=== PATIENT | female | born 1950 | race Caucasian/White ===

== ENCOUNTER 2021-06-21 13:33 | Emergency (ER) | payer MEDICARE ==
[2021-06-21 13:50] VITALS: O2SAT 100
--- NOTE | 2021-06-21 14:02 | ERPHSYRPT ---
- History of Present Illness Time Seen by Provider: 06/21/21 13:50 Source: patient Exam Limitations: no limitations Patient Subjective Stated Complaint: Weakness Triage Nursing Assessment: Patient ambulated back to ED and transferred self to bed. Patient A+O X 3. Patient's skin pink, warm and dry. Patient complains of weakness for a long time. Patient states she has anxiety and it has been bad the past several months. Her has been put in a care home recently. Physician History: This is a 71 y/o cachectic white female pt of dr. escobedo who presents with multiple complaints including weakness, instability, weight loss and anxiety. she denies cp, denies sob, denies abd pain. she denies n/v/d. she is focused on needing calories. Timing/Duration: week(s) Severity: mild Associated Symptoms: weakness, No nausea, No vomiting, No abdominal pain, No shortness of breath, No chest pain Allergies/Adverse Reactions: latex Allergy (Severe, Verified 06/21/21 13:42) Rash Penicillins Allergy (Intermediate, Verified 06/21/21 13:42) wool Allergy (Intermediate, Verified 06/21/21 13:42) Rash Home Medications: Aspirin 81 mg PO DAILY 05/10/14 [History] Hx Tetanus, Diphtheria Vaccination/Date Given: Yes Hx Influenza Vaccination/Date Given: No Hx Pneumococcal Vaccination/Date Given: No Immunizations Up to Date: Yes Travel Risk - International Travel Have you traveled outside of the country in past 3 weeks: No - Coronavirus Screening Are you exhibiting any of the following symptoms?: No Close contact with a COVID-19 positive Pt in past 14-21 Days: No - Vaccine Status Have you recieved a Covid-19 vaccination: Yes 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 - Vaccination Dates Date of 2cond Vaccination (if applicable): na Dates if Unknown: na - Review of Systems Constitutional: Weakness Eyes: No Symptoms Ears, Nose, & Throat: No Symptoms Respiratory: No Symptoms Cardiac: No Symptoms Abdominal/Gastrointestinal: No Symptoms Genitourinary Symptoms: No Symptoms Musculoskeletal: No Symptoms Skin: No Symptoms Neurological: No Symptoms Psychological: Anxiety Endocrine: No Symptoms Hematologic/Lymphatic: No Symptoms Immunological/Allergic: No Symptoms All Other Systems: Reviewed and Negative - Past Medical History Pertinent Past Medical History: Yes Neurological History: Other ENT History: Cataracts Cardiac History: High Cholesterol, Hypertension Respiratory History: No Pertinent History Endocrine Medical History: No Pertinent History Musculoskeletal History: Fibromyalgia GI Medical History: No Pertinent History History: No Pertinent History Psycho-Social History: Anxiety, Depression Female Reproductive Disorders: No Pertinent History Other Medical History: parkinsons disease - Past Surgical History Past Surgical History: Yes Neuro Surgical History: No Pertinent History Cardiac: No Pertinent History Respiratory: No Pertinent History Gastrointestinal: No Pertinent History Genitourinary: No Pertinent History Musculoskeletal: No Pertinent History Female Surgical History: No Pertinent History - Social History Smoking Status: Never smoker Exposure to second hand smoke: No Drug Use: none Patient Lives Alone: Yes - Nursing Vital Signs Nursing Vital Signs: Initial Vital Signs Temperature 98.6 F 06/21/21 13:42 Pulse Rate 94 H 06/21/21 13:42 Respiratory Rate 18 06/21/21 13:42 Blood Pressure 177/95 06/21/21 13:42 O2 Sat by Pulse Oximetry 100 06/21/21 13:42 Pain Scale Pain Intensity 0 - Physical Exam General Appearance: no apparent distress, alert, anxiety, cachetic Eye Exam: PERRL/EOMI, eyes nml inspection Ears, Nose, Throat Exam: normal ENT inspection, moist mucous membranes Neck Exam: normal inspection, non-tender, supple, full range of motion Respiratory Exam: normal breath sounds, lungs clear, airway intact, No chest tenderness, No respiratory distress Cardiovascular Exam: regular rate/rhythm, normal heart sounds, normal peripheral pulses Gastrointestinal/Abdomen Exam: soft, normal bowel sounds, No tenderness Pelvic Exam: not done Rectal Exam: not done Back Exam: normal inspection, normal range of motion, No CVA tenderness, No vertebral tenderness Extremity Exam: normal inspection Neurologic Exam: alert, oriented x 3, cooperative, 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 no change from ekg 05/10/14) Ordered Tests: Active Orders 24 hr Category Date Time Status EKG-ER Only STAT Care 06/21/21 14:03 Active IV Insertion STAT Care 06/21/21 14:03 Active CBC W DIFF Stat Lab 06/21/21 14:25 Completed CMP Stat Lab 06/21/21 14:25 Completed Lactic Acid Stat Lab 06/21/21 14:26 Completed TROPONIN Q3H Lab 06/21/21 14:15 Ordered TROPONIN Q3H Lab 06/21/21 17:15 Ordered TROPONIN Q3H Lab 06/21/21 20:15 Ordered TROPONIN Q3H Lab 06/21/21 23:15 Ordered TROPONIN Q3H Lab 06/22/21 02:15 Ordered UA W/RFX CULTURE Stat Lab 06/21/21 Ordered UA W/RFX CULTURE Stat Lab 06/21/21 14:29 Results Medication Summary Discontinued Medications Generic Name Dose Route Start Last Admin Trade Name Antonioq PRN Reason Stop Dose Admin Sodium Chloride 1,000 mls @ 999 mls/hr 06/21/21 14:03 06/21/21 15:46 Sodium Chloride 0.9% 1000 Ml IV 06/21/21 15:03 Infused .Q1H1M STA Infusion Sodium Chloride Confirm 06/21/21 14:36 Sodium Chloride 0.9% 1000 Ml Administered 06/21/21 14:37 Dose 1,000 mls @ ud .ROUTE .STK-MED ONE Lab/Rad Data: Laboratory Result Diagrams 06/21/21 14:25 06/21/21 14:25 Laboratory Results 06/21/21 06/21/21 06/21/21 Range/Units 14:29 14:26 14:25 WBC (4.0-10.5) K/mm3 RBC (4.1-5.4) M/mm3 Hgb (12.0-16.0) gm/dl Hct (35-47) % MCV (78-100) fl MCH (26-32) pg MCHC (32-36) g/dl RDW (11.5-14.0) % Plt Count (150-450) K/mm3 MPV (7.5-11.0) fl Gran % (36.0-66.0) % Eos # (Auto) (0-0.5) Absolute Lymphs (auto) (1.0-4.6) Absolute Monos (auto) (0.0-1.3) Lymphocytes % (24.0-44.0) % Monocytes % (0.0-12.0) % Eosinophils % (0.00-5.0) % Basophils % (0.0-0.4) % Absolute Granulocytes (1.4-6.9) Basophils # (0-0.4) Sodium 135 L (137-145) mmol/L Potassium 3.9 (3.5-5.1) mmol/L Chloride 104 (98-107) mmol/L Carbon Dioxide 20 L (22-30) mmol/L Anion Gap 14.4 (5-15) MEQ/L BUN 15 (7-17) mg/dL Creatinine 0.52 (0.52-1.04) mg/dL Estimated GFR > 60.0 ML/MIN Glucose 90 (74-106) mg/dL Lactic Acid 0.6 (0.4-2.0) Calcium 9.6 (8.4-10.2) mg/dL Total Bilirubin 0.40 (0.2-1.3) mg/dL AST 39 H (14-36) U/L ALT 17 (0-35) U/L Alkaline Phosphatase 48 (38-126) U/L Serum Total Protein 7.6 (6.3-8.2) g/dL Albumin 4.4 (3.5-5.0) g/dL Urinalys Dipstick Clnc Pending Urine Color YELLOW (YELLOW) Urine Appearance CLEAR (CLEAR) Urine pH 6.5 (5-6) Ur Specific [place] 1.020 (1.005-1.025) POC Urine Protein Conf NEGATIVE (Negative) Urine Ketones NEGATIVE (NEGATIVE) Urine Nitrite NEGATIVE (NEGATIVE) Urine Bilirubin NEGATIVE (NEGATIVE) Urine Urobilinogen 0.2 (0-1) mg/dL Urine Leukocytes NEGATIVE (NEGATIVE) Urine WBC (Auto) NONE (0-5) /HPF Urine RBC (Auto) NONE (0-2) /HPF U Epithel Cells (Auto) NONE (FEW) /HPF Urine Bacteria (Auto) NONE (NEGATIVE) /HPF Urine RBC NEGATIVE (0-5) Ezio/ul Urine Mucus (Auto) SLIGHT (NEGATIVE) /HPF Ur Culture Indicated? NO Urine Glucose NEGATIVE (NEGATIVE) mg/dL 06/21/21 Range/Units 14:25 WBC 5.0 (4.0-10.5) K/mm3 RBC 3.65 L (4.1-5.4) M/mm3 Hgb 10.8 L (12.0-16.0) gm/dl Hct 32.6 L (35-47) % MCV 89.3 (78-100) fl MCH 29.6 (26-32) pg MCHC 33.1 (32-36) g/dl RDW 13.2 (11.5-14.0) % Plt Count 232 (150-450) K/mm3 MPV 10.1 (7.5-11.0) fl Gran % 61.9 (36.0-66.0) % Eos # (Auto) 0.15 (0-0.5) Absolute Lymphs (auto) 1.27 (1.0-4.6) Absolute Monos (auto) 0.47 (0.0-1.3) Lymphocytes % 25.2 (24.0-44.0) % Monocytes % 9.3 (0.0-12.0) % Eosinophils % 3.0 (0.00-5.0) % Basophils % 0.6 (0.0-0.4) % Absolute Granulocytes 3.12 (1.4-6.9) Basophils # 0.03 (0-0.4) Sodium (137-145) mmol/L Potassium (3.5-5.1) mmol/L Chloride (98-107) mmol/L Carbon Dioxide (22-30) mmol/L Anion Gap (5-15) MEQ/L BUN (7-17) mg/dL Creatinine (0.52-1.04) mg/dL Estimated GFR ML/MIN Glucose (74-106) mg/dL Lactic Acid (0.4-2.0) Calcium (8.4-10.2) mg/dL Total Bilirubin (0.2-1.3) mg/dL AST (14-36) U/L ALT (0-35) U/L Alkaline Phosphatase (38-126) U/L Serum Total Protein (6.3-8.2) g/dL Albumin (3.5-5.0) g/dL Urinalys Dipstick Clnc Urine Color (YELLOW) Urine Appearance (CLEAR) Urine pH (5-6) Ur Specific [place] (1.005-1.025) POC Urine Protein Conf (Negative) Urine Ketones (NEGATIVE) Urine Nitrite (NEGATIVE) Urine Bilirubin (NEGATIVE) Urine Urobilinogen (0-1) mg/dL Urine Leukocytes (NEGATIVE) Urine WBC (Auto) (0-5) /HPF Urine RBC (Auto) (0-2) /HPF U Epithel Cells (Auto) (FEW) /HPF Urine Bacteria (Auto) (NEGATIVE) /HPF Urine RBC (0-5) Ezio/ul Urine Mucus (Auto) (NEGATIVE) /HPF Ur Culture Indicated? Urine Glucose (NEGATIVE) mg/dL - Progress Progress: unchanged Counseled pt/family regarding: lab results, diagnosis, need for follow-up - Departure Departure Disposition: Home Clinical Impression: Weakness, Weight loss, Anxiety about health Condition: Stable Critical Care Time: No Referrals: KIKE ESCOBEDO, [Primary Care Provider] - Follow up/PCP as directed Additional Instructions: Take all your medications as prescribed. follow up with your primary doctor for further evaluation and treatment
[2021-06-21] MEDS ORDERED: Sodium Chloride 0.9% 1000 ML 1,000 ML IV STA (14:03)
[2021-06-21] MEDS ORDERED: Sodium Chloride 0.9% 1000 ML 1,000 ML ONE (14:36)
[2021-06-21 14:39] LABS: Absolute Neutrophil Ct (ANC) 3.12 (1.4-6.9); Basophil (Absolute #) 0.03 (0-0.4); Eosinophil (Absolute #) 0.15 (0-0.5); Hematocrit 32.6 % (35-47); Hemoglobin 10.8 gm/dl (12.0-16.0); Lymphocyte (Absolute #) 1.27 (1.0-4.6); Lymphocytes % 25.2 % (24.0-44.0); Mean Cell Volume 89.3 fl (78-100); Mean Corpuscular Hemoglobin 29.6 pg (26-32); Mean Corpuscular Hgb Concent. 33.1 g/dl (32-36); Mean Platelet Volume 10.1 fl (7.5-11.0); Monocyte (Absolute #) 0.47 (0.0-1.3); Monocytes % 9.3 % (0.0-12.0); Neutrophil % 61.9 % (36.0-66.0); Platelet Count 232 K/mm3 (150-450); Red Blood Count 3.65 M/mm3 (4.1-5.4); Red Cell Distribution Width 13.2 % (11.5-14.0)
[2021-06-21 15:18] LABS: ALBUMIN 4.4 g/dL (3.5-5.0); ALKALINE PHOSPHATASE 48 U/L (38-126); ANION GAP 14.4 MEQ/L (5-15); BLOOD UREA NITROGEN 15 mg/dL (7-17); CHLORIDE 104 mmol/L (98-107); Calcium 9.6 mg/dL (8.4-10.2); Carbon Dioxide 20 mmol/L (22-30); Creatinine 1 0.52 mg/dL (0.52-1.04); EST GLOMERULAR FILTRATION RATE > 60.0 ML/MIN; Glucose 90 mg/dL (74-106); Potassium 3.9 mmol/L (3.5-5.1); SGOT/AST 39 U/L (14-36); SGPT/ALT 17 U/L (0-35); SODIUM 135 mmol/L (137-145); Total Protein 7.6 g/dL (6.3-8.2)
[2021-06-21 16:00] LABS: Mucus SLIGHT /HPF (NEGATIVE)
[2021-06-21 16:01] LABS: Appearance CLEAR (CLEAR); Glucose NEGATIVE (NEGATIVE)
[2021-06-21 16:02] LABS: Bilirubin NEGATIVE (NEGATIVE); Ketones NEGATIVE (NEGATIVE); Nitrite NEGATIVE (NEGATIVE); Ph 6.5 (5-6); Protein,Urine Dip NEGATIVE (Negative); RBC NEGATIVE Ery/ul (0-5); Urine Cultured Indicated? NO; Urobilinogen 0.2 mg/dL (0-1)
[2021-06-21 16:09] VITALS: BP 147/68; PULSE 83
[2021-06-21 16:10] LABS: Dipstick done @ ? MAIN LAB
== END 2021-06-21 16:30 | disposition home or self-care (01) ==
LOC: ED 13:33
DX: R53.1 Weakness (principal); R63.4 Abnormal weight loss; F41.9 Anxiety disorder, unspecified; E78.5 Hyperlipidemia, unspecified; I10 Essential (primary) hypertension
CPT/HCPCS: 36000; 36415; 80053; 81015; 83605; 85025; 93005; 96360; 96374; 99284

== ENCOUNTER 2021-09-05 13:25 | Observation (INO) | payer MEDICARE ==
[2021-09-05] MEDS: Sodium Chloride 0.9% 1000 ML 1,000 ML IV SCH ×2 (14:49→22:23)
[2021-09-05 14:50] LABS: INFLUENZA A NEGATIVE (NEGATIVE); INFLUENZA B NEGATIVE (NEGATIVE); RESPIRATORY SYNCTIAL VIRUS NEGATIVE (Negative); SARS-CoV-2 Xpert Express NEGATIVE (NEGATIVE)
[2021-09-05] MEDS: Ativan 0.5 MG PO PRN (18:02)
[2021-09-05] MEDS ORDERED: TYLENOL 325 MG PO PRN (18:04)
[2021-09-05] MEDS: TYLENOL EXTRA STRENGTH 500 MG PO PRN (18:24)
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
[2021-09-05] MEDS: Restoril 15 MG PO SCH ×2 (21:22→21:27)
[2021-09-05] MEDS: Neurontin PO SCH (21:22)
[2021-09-05] MEDS: Robaxin PO SCH (21:22)
[2021-09-06] MEDS: TYLENOL EXTRA STRENGTH 500 MG PO PRN ×3 (03:55→22:07)
[2021-09-06] MEDS: Ativan 0.5 MG PO PRN ×3 (03:55→16:41)
[2021-09-06 05:38] LABS: Absolute Neutrophil Ct (ANC) 1.62 x10^3/uL (1.4-6.9); Basophil (Absolute #) 0.06 x10^3/uL (0-0.4); Eosinophil (Absolute #) 0.17 x10^3/uL (0-0.5); Hemoglobin 10.3 g/dL (12.0-16.0); Lymphocyte (Absolute #) 1.21 x10^3/uL (1.0-4.6); Lymphocytes % 35.5 % (24.0-44.0); Mean Cell Volume 89.9 fL (78-100); Mean Corpuscular Hemoglobin 28.9 pg (26-32); Mean Corpuscular Hgb Concent. 32.2 g/dL (32-36); Mean Platelet Volume 10.9 fL (7.5-11.0); Monocyte (Absolute #) 0.35 x10^3/uL (0.0-1.3); Monocytes % 10.3 % (0.0-12.0); Neutrophil % 47.4 % (36.0-66.0); Platelet Count 227 x10^3/uL (150-450); Red Blood Count 3.56 x10^6/uL (4.1-5.4); Red Cell Distribution Width 12.3 % (11.5-14.0); White Blood Count 3.4 x10^3/uL (4.0-10.5)
[2021-09-06 06:08] LABS: ALBUMIN 3.8 g/dL (3.5-5.0); ALKALINE PHOSPHATASE 45 U/L (38-126); ANION GAP 10.9 MEQ/L (5-15); BLOOD UREA NITROGEN 12 mg/dL (7-17); CHLORIDE 106 mmol/L (98-107); Calcium 9.1 mg/dL (8.4-10.2); Carbon Dioxide 27 mmol/L (22-30); EST GLOMERULAR FILTRATION RATE > 60.0 ML/MIN; Glucose 97 mg/dL (74-106); Potassium 3.5 mmol/L (3.5-5.1); SGOT/AST 71 U/L (14-36); SGPT/ALT 22 U/L (0-35); SODIUM 140 mmol/L (137-145); Total Protein 6.8 g/dL (6.3-8.2)
[2021-09-06] MEDS: Sodium Chloride 0.9% 1000 ML 1,000 ML IV SCH ×3 (06:39→22:58)
[2021-09-06] MEDS: Neurontin PO SCH ×3 (09:06→22:07)
[2021-09-06] MEDS: Robaxin PO SCH ×4 (09:07→22:07)
--- NOTE | 2021-09-06 11:17 | XRAY ---
Indication: jail placement. Comparison: None Portable chest clear with incidental COPD. Heart not enlarged. Bony thorax intact with osteopenia, degenerative changes, mild dextroscoliosis centered at thoracolumbar junction, old right 3-5 rib fractures, and mild remote T12 compression fracture. Impression: Nonacute chest with chronic features.
--- NOTE | 2021-09-06 13:59 | PCM.NOTE ---
Date and Time: 09/06/21 9191 Subjective Assessment: Patient has been very restess "I hurt all over my body" She is having difficulty chewing her food and with enunciating words. Objective Exam General Appearance: anxiety Neurologic Exam: alert, oriented x 3, cooperative, motor deficits, agitation, dysarthria (weak voice problem forming words or finding words) Skin Exam: warm, dry, pale Neck Exam: other (paracervical muscle spasm and tenderness) Respiratory Exam: normal breath sounds Cardiovascular Exam: regular rate/rhythm Gastrointestinal/Abdomen Exam: soft (nontender) Extremity Exam: other (spasticity) OBJECTIVE DATA Vital Signs: Vital Signs - 24 hr Temp Pulse Resp BP Pulse Ox 09/06/21 12:00 97.1 F 88 16 131/71 100 09/06/21 08:00 97.8 F 89 15 130/69 100 09/06/21 04:00 97.3 F 78 16 160/74 90 L 09/06/21 00:00 97.3 F 83 16 155/75 96 09/05/21 20:00 97.6 F 88 16 142/75 98 09/05/21 16:13 98.0 F 90 19 135/72 98 Pain Assessment - Last Documented [facility] Intake and Output: Intake & Output 09/04/21 09/05/21 09/06/21 09/07/21 11:59 11:59 11:59 11:59 Intake Total 1901 120 Output Total 2350 300 Balance -449 -180 Weight 35.9 kg Lab Results: Lab Results-Last 24 Hours 09/05/21 09/06/21 09/06/21 Range/Units 14:09 05:00 05:00 WBC 3.4 L (4.0-10.5) x10^3/uL RBC 3.56 L (4.1-5.4) x10^6/uL Hgb 10.3 L (12.0-16.0) g/dL Hct 32.0 L (35-47) % MCV 89.9 (78-100) fL MCH 28.9 (26-32) pg MCHC 32.2 (32-36) g/dL RDW 12.3 (11.5-14.0) % Plt Count 227 (150-450) x10^3/uL MPV 10.9 (7.5-11.0) fL Gran % 47.4 (36.0-66.0) % Immature Gran % (Auto) 0.0 (0.00-0.4) % Nucleat RBC Rel Count 0.0 (0.00-0.1) % Eos # (Auto) 0.17 (0-0.5) x10^3/uL Immature Gran # (Auto) 0.00 (0.00-0.03) x10^3u/L Absolute Lymphs (auto) 1.21 (1.0-4.6) x10^3/uL Absolute Monos (auto) 0.35 (0.0-1.3) x10^3/uL Absolute Nucleated RBC 0.00 (0.00-0.01) x10^3u/L Lymphocytes % 35.5 (24.0-44.0) % Monocytes % 10.3 (0.0-12.0) % Eosinophils % 5.0 (0.00-5.0) % Basophils % 1.8 (0.0-0.4) % Absolute Granulocytes 1.62 (1.4-6.9) x10^3/uL Basophils # 0.06 (0-0.4) x10^3/uL Sodium 140 (137-145) mmol/L Potassium 3.5 (3.5-5.1) mmol/L Chloride 106 (98-107) mmol/L Carbon Dioxide 27 (22-30) mmol/L Anion Gap 10.9 (5-15) MEQ/L BUN 12 (7-17) mg/dL Creatinine 0.60 (0.52-1.04) mg/dL Estimated GFR > 60.0 ML/MIN Glucose 97 (74-106) mg/dL Calcium 9.1 (8.4-10.2) mg/dL Total Bilirubin 0.40 (0.2-1.3) mg/dL AST 71 H (14-36) U/L ALT 22 (0-35) U/L Alkaline Phosphatase 45 (38-126) U/L Serum Total Protein 6.8 (6.3-8.2) g/dL Albumin 3.8 (3.5-5.0) g/dL Influenza Type A Ag NEGATIVE (NEGATIVE) Influenza Type B Ag NEGATIVE (NEGATIVE) RSV (PCR) NEGATIVE (Negative) SARS-CoV-2 (PCR) NEGATIVE (NEGATIVE) Radiology Exams: Radiology Procedures Category Date Time Status CHEST 1 VIEW (PORTABLE) Urgent Exams 09/06/21 10:36 Completed Assessment/Plan (1) Failure to thrive in adult Status: Acute (2) Anxiety Status: Chronic Code(s): F41.9 - ANXIETY DISORDER, UNSPECIFIED (3) Falls Status: Acute Qualifiers: Encounter type: subsequent encounter Qualified Code(s): W19.XXXD - Unspecified fall, subsequent encounter Code(s): W19.XXXA - UNSPECIFIED FALL, INITIAL ENCOUNTER (4) Weight loss Status: Acute
[2021-09-06] MEDS: Restoril 15 MG PO SCH (22:07)
[2021-09-07 06:21] LABS: ALBUMIN 3.9 g/dL (3.5-5.0); ALKALINE PHOSPHATASE 48 U/L (38-126); ANION GAP 9.9 MEQ/L (5-15); BLOOD UREA NITROGEN 7 mg/dL (7-17); CHLORIDE 109 mmol/L (98-107); Calcium 9.3 mg/dL (8.4-10.2); Carbon Dioxide 26 mmol/L (22-30); Creatinine 1 0.55 mg/dL (0.52-1.04); EST GLOMERULAR FILTRATION RATE > 60.0 ML/MIN; Glucose 96 mg/dL (74-106); Potassium 3.9 mmol/L (3.5-5.1); SGOT/AST 29 U/L (14-36); SGPT/ALT 21 U/L (0-35); SODIUM 141 mmol/L (137-145)
[2021-09-07] MEDS: Neurontin PO SCH ×3 (10:38→20:33)
[2021-09-07] MEDS: Ativan 0.5 MG PO PRN ×2 (10:38→20:33)
[2021-09-07] MEDS: Robaxin PO SCH ×4 (10:39→20:33)
[2021-09-07] MEDS: TYLENOL EXTRA STRENGTH 500 MG PO PRN (11:46)
[2021-09-07] MEDS: Sodium Chloride 0.9% 1000 ML 1,000 ML IV SCH (15:50)
[2021-09-07] MEDS: Restoril 15 MG PO SCH (20:34)
[2021-09-08] MEDS: Sodium Chloride 0.9% 1000 ML 1,000 ML IV SCH ×3 (03:08→22:36)
[2021-09-08] MEDS: Ativan 0.5 MG PO PRN ×2 (04:43→11:10)
[2021-09-08] MEDS: Neurontin PO SCH ×3 (09:34→22:31)
[2021-09-08] MEDS: Robaxin PO SCH ×4 (09:35→22:31)
[2021-09-08] MEDS: TYLENOL EXTRA STRENGTH 500 MG PO PRN (10:46)
[2021-09-08] MEDS: Restoril 15 MG PO SCH (22:31)
[2021-09-09] MEDS: Ativan 0.5 MG PO PRN ×3 (01:45→14:14)
[2021-09-09] MEDS: Sodium Chloride 0.9% 1000 ML 1,000 ML IV SCH (03:23)
[2021-09-09] MEDS ORDERED: Docusate Sodium 100 MG PO SCH (10:00)
[2021-09-09] MEDS: TYLENOL EXTRA STRENGTH 500 MG PO PRN (10:03)
[2021-09-09] MEDS: Neurontin PO SCH ×2 (10:04→14:14)
[2021-09-09] MEDS: Robaxin PO SCH ×2 (10:04→14:14)
[2021-09-09 12:03] VITALS: BP 114/65; PULSE 81; O2SAT 98
== END 2021-09-09 14:46 ==
LOC: MED SURG 13:25
PROVIDERS: ADMIT Family Medicine; ATTEND Family Medicine
DX: R62.7 Adult failure to thrive (principal); F41.9 Anxiety disorder, unspecified; G20 Parkinson's disease; R63.4 Abnormal weight loss; I10 Essential (primary) hypertension; E78.00 Pure hypercholesterolemia, unspecified; W19.XXXA Unspecified fall, initial encounter; Z91.81 History of falling; Z79.899 Other long term (current) drug therapy; Z20.828 Contact with and (suspected) exposure to other viral communicable diseases
CPT/HCPCS: 0241U; 36415; 71045; 80053; 85025; 92610; 95812; 97110; 97162; 97167; 97530; G0378; A9270-GY

== ENCOUNTER 2022-02-18 19:13 | Emergency (ER) | payer MEDICARE ==
[2022-02-18] MEDS ORDERED: Sodium Chloride 0.9% 500 ML 500 ML IV ONE ×2 (19:31→19:35)
--- NOTE | 2022-02-18 19:35 | ERPHSYRPT ---
- History of Present Illness Time Seen by Provider: 02/18/22 19:19 Source: patient, family, EMS Exam Limitations: no limitations Patient Subjective Stated Complaint: pt states she has had weakness for several months off and on this time she has been weak for 5 days, states she went to. rehab in august and states that her family believes she may have parkinsons. son wanted her seen in ER since he was concerned and they have been unable to get into a neuriologist for three years per son. Triage Nursing Assessment: pt is alert and oriented, able to answer questions, pt states she has no pain, but does have chronic neck pain. Physician History: 71 years old female with questionable history of Parkinson, tremors in upper extremities presented in the ER with chief complaint of generalized weakness and fatigue. Patient reports she has fibromyalgia and it gets really difficult for her to ambulate at times she denies any chest pain, palpitations or shortness of breath. No abdominal pain nausea vomiting or diarrhea. She denies any focal numbness tingling or weakness. Denies any headache., Visual disturbance, d ifficulty speech. Patient states she has been working on getting appointment with neurologist for 3 years to be diagnosed with Parkinson but cannot. Timing/Duration: week(s), gradual onset, worse Severity: moderate Associated Symptoms: malaise, weakness Allergies/Adverse Reactions: latex Allergy (Severe, Verified 09/05/21 16:11) Rash Penicillins Allergy (Intermediate, Verified 09/05/21 16:11) wool Allergy (Intermediate, Verified 09/05/21 16:11) Rash Hx Tetanus, Diphtheria Vaccination/Date Given: Yes Hx Influenza Vaccination/Date Given: No Hx Pneumococcal Vaccination/Date Given: No Travel Risk - International Travel Have you traveled outside of the country in past 3 weeks: No - Coronavirus Screening Are you exhibiting any of the following symptoms?: No Close contact with a COVID-19 positive Pt in past 14-21 Days: No - Vaccine Status Have you recieved a Covid-19 vaccination: Yes Card Painter: Unknown - Vaccination Dates Dates if Unknown: unknown - Review of Systems Constitutional: Fatigue, Weakness Eyes: No Symptoms Ears, Nose, & Throat: No Symptoms Respiratory: No Symptoms Cardiac: No Symptoms Abdominal/Gastrointestinal: No Symptoms Genitourinary Symptoms: No Symptoms Musculoskeletal: Myalgias Neurological: No Symptoms Endocrine: No Symptoms Hematologic/Lymphatic: No Symptoms Immunological/Allergic: No Symptoms - Past Medical History Pertinent Past Medical History: Yes Neurological History: Other ENT History: Cataracts Cardiac History: High Cholesterol, Hypertension Respiratory History: No Pertinent History Endocrine Medical History: No Pertinent History Musculoskeletal History: Fibromyalgia GI Medical History: No Pertinent History History: No Pertinent History Psycho-Social History: Anxiety, Depression Female Reproductive Disorders: No Pertinent History Other Medical History: parkinsons disease, whooping cough - Past Surgical History Past Surgical History: Yes Neuro Surgical History: No Pertinent History Cardiac: No Pertinent History Respiratory: No Pertinent History Gastrointestinal: No Pertinent History Genitourinary: No Pertinent History Musculoskeletal: No Pertinent History Female Surgical History: No Pertinent History - Social History Smoking Status: Never smoker Exposure to second hand smoke: No Drug Use: none Patient Lives Alone: Yes - Nursing Vital Signs Nursing Vital Signs: Initial Vital Signs Temperature 97.6 F 02/18/22 19:14 Pulse Rate 99 H 02/18/22 19:14 Respiratory Rate 20 02/18/22 19:14 Blood Pressure 141/83 02/18/22 19:14 O2 Sat by Pulse Oximetry 97 02/18/22 19:14 Pain Scale Pain Intensity 0 - Physical Exam General Appearance: no apparent distress, alert Eye Exam: PERRL/EOMI Ears, Nose, Throat Exam: normal ENT inspection, TMs normal, pharynx normal Neck Exam: normal inspection, non-tender, supple, full range of motion Respiratory Exam: normal breath sounds, lungs clear Cardiovascular Exam: regular rate/rhythm, normal heart sounds Gastrointestinal/Abdomen Exam: soft, normal bowel sounds, No tenderness Back Exam: normal inspection, normal range of motion Extremity Exam: normal inspection, normal range of motion Neurologic Exam: alert, oriented x 3, cooperative, mass 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 II-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 nml as tested, normal mood/affect, nml cerebellar function, sensation nml, No motor deficits Skin Exam: normal color SpO2 Interpretation: normal SpO2: 97 O2 Delivery: Room Air - Course EKG Interpreted by Me: RATE, Sinus Rhythm, NORMAL AXIS, NORMAL INTERVALS, NORMAL QRS Ordered Tests: Active Orders 24 hr Category Date Time Status IV Insertion STAT Care 02/18/22 19:30 Active CHEST 1 VIEW (PORTABLE) Stat Exams 02/18/22 19:31 Taken CBC W DIFF Stat Lab 02/18/22 19:44 Completed CMP Stat Lab 02/18/22 19:44 Completed Lactic Acid Stat Lab 02/18/22 20:00 Completed MAGNESIUM Stat Lab 02/18/22 19:44 Completed UA W/RFX CULTURE Stat Lab 02/18/22 19:51 Completed Medication Summary Discontinued Medications Generic Name Dose Route Start Last Admin Trade Name Best PRN Reason Stop Dose Admin Sodium Chloride 500 mls @ 500 mls/hr 02/18/22 19:31 02/18/22 20:38 Sodium Chloride 0.9% 500 Ml IV 02/18/22 20:30 Infused .Q1H ONE Infusion Sodium Chloride Confirm 02/18/22 19:35 Sodium Chloride 0.9% 500 Ml Administered 02/18/22 19:36 Dose 500 mls @ ud IV .STK-MED ONE Lab/Rad Data: Laboratory Result Diagrams 02/18/22 19:44 02/18/22 19:44 Laboratory Results 02/18/22 02/18/22 02/18/22 Range/Units 20:00 19:51 19:44 WBC (4.0-10.5) x10^3/uL RBC (4.1-5.4) x10^6/uL Hgb (12.0-16.0) g/dL Hct (35-47) % MCV (78-100) fL MCH (26-32) pg MCHC (32-36) g/dL RDW (11.5-14.0) % Plt Count (150-450) x10^3/uL MPV (7.5-11.0) fL Gran % (36.0-66.0) % Immature Gran % (Auto) (0.00-0.4) % Nucleat RBC Rel Count (0.00-0.1) % Eos # (Auto) (0-0.5) x10^3/uL Immature Gran # (Auto) (0.00-0.03) x10^3u/L Absolute Lymphs (auto) (1.0-4.6) x10^3/uL Absolute Monos (auto) (0.0-1.3) x10^3/uL Absolute Nucleated RBC (0.00-0.01) x10^3u/L Lymphocytes % (24.0-44.0) % Monocytes % (0.0-12.0) % Eosinophils % (0.00-5.0) % Basophils % (0.0-0.4) % Absolute Granulocytes (1.4-6.9) x10^3/uL Basophils # (0-0.4) x10^3/uL Sodium 136 L (137-145) mmol/L Potassium 3.9 (3.5-5.1) mmol/L Chloride 104 (98-107) mmol/L Carbon Dioxide 25 (22-30) mmol/L Anion Gap 10.3 (5-15) MEQ/L BUN 19 H (7-17) mg/dL Creatinine 0.52 (0.52-1.04) mg/dL Estimated GFR > 60.0 ML/MIN Glucose 117 H (74-106) mg/dL Lactic Acid 0.7 (0.4-2.0) Calcium 9.7 (8.4-10.2) mg/dL Magnesium 2.1 (1.6-2.3) mg/dL Total Bilirubin 0.50 (0.2-1.3) mg/dL AST 26 (14-36) U/L ALT 18 (0-35) U/L Alkaline Phosphatase 72 (38-126) U/L Serum Total Protein 7.6 (6.3-8.2) g/dL Albumin 4.5 (3.5-5.0) g/dL Urinalys Dipstick Clnc MAIN LAB Urine Color YELLOW (YELLOW) Urine Appearance CLEAR (CLEAR) Urine pH 6.0 (5-6) Ur Specific Backus 1.015 (1.005-1.025) POC Urine Protein Conf NEGATIVE (Negative) Urine Ketones NEGATIVE (NEGATIVE) Urine Nitrite NEGATIVE (NEGATIVE) Urine Bilirubin NEGATIVE (NEGATIVE) Urine Urobilinogen 0.2 (0-1) mg/dL Urine Leukocytes NEGATIVE (NEGATIVE) Urine WBC (Auto) 0-2 (0-5) /HPF Urine RBC (Auto) NONE (0-2) /HPF U Epithel Cells (Auto) NONE (FEW) /HPF Urine Bacteria (Auto) NONE (NEGATIVE) /HPF Urine RBC NEGATIVE (0-5) Ezio/ul Urine Mucus (Auto) SLIGHT A (NEGATIVE) /HPF Ur Culture Indicated? NO Urine Glucose NEGATIVE (NEGATIVE) mg/dL 12/24/22 Range/Units 19:44 WBC 12.7 H (4.0-10.5) x10^3/uL RBC 3.60 L (4.1-5.4) x10^6/uL Hgb 10.6 L (12.0-16.0) g/dL Hct 32.0 L (35-47) % MCV 88.9 (78-100) fL MCH 29.4 (26-32) pg MCHC 33.1 (32-36) g/dL RDW 12.3 (11.5-14.0) % Plt Count 274 (150-450) x10^3/uL MPV 10.1 (7.5-11.0) fL Gran % 83.2 H (36.0-66.0) % Immature Gran % (Auto) 0.3 (0.00-0.4) % Nucleat RBC Rel Count 0.0 (0.00-0.1) % Eos # (Auto) 0.06 (0-0.5) x10^3/uL Immature Gran # (Auto) 0.04 H (0.00-0.03) x10^3u/L Absolute Lymphs (auto) 1.42 (1.0-4.6) x10^3/uL Absolute Monos (auto) 0.57 (0.0-1.3) x10^3/uL Absolute Nucleated RBC 0.00 (0.00-0.01) x10^3u/L Lymphocytes % 11.2 L (24.0-44.0) % Monocytes % 4.5 (0.0-12.0) % Eosinophils % 0.5 (0.00-5.0) % Basophils % 0.3 (0.0-0.4) % Absolute Granulocytes 10.56 H (1.4-6.9) x10^3/uL Basophils # 0.04 (0-0.4) x10^3/uL Sodium (137-145) mmol/L Potassium (3.5-5.1) mmol/L Chloride (98-107) mmol/L Carbon Dioxide (22-30) mmol/L Anion Gap (5-15) MEQ/L BUN (7-17) mg/dL Creatinine (0.52-1.04) mg/dL Estimated GFR ML/MIN Glucose (74-106) mg/dL Lactic Acid (0.4-2.0) Calcium (8.4-10.2) mg/dL Magnesium (1.6-2.3) mg/dL Total Bilirubin (0.2-1.3) mg/dL AST (14-36) U/L ALT (0-35) U/L Alkaline Phosphatase (38-126) U/L Serum Total Protein (6.3-8.2) g/dL Albumin (3.5-5.0) g/dL Urinalys Dipstick Clnc Urine Color (YELLOW) Urine Appearance (CLEAR) Urine pH (5-6) Ur Specific Backus (1.005-1.025) POC Urine Protein Conf (Negative) Urine Ketones (NEGATIVE) Urine Nitrite (NEGATIVE) Urine Bilirubin (NEGATIVE) Urine Urobilinogen (0-1) mg/dL Urine Leukocytes (NEGATIVE) Urine WBC (Auto) (0-5) /HPF Urine RBC (Auto) (0-2) /HPF U Epithel Cells (Auto) (FEW) /HPF Urine Bacteria (Auto) (NEGATIVE) /HPF Urine RBC (0-5) Ezio/ul Urine Mucus (Auto) (NEGATIVE) /HPF Ur Culture Indicated? Urine Glucose (NEGATIVE) mg/dL - Progress Progress: improved, re-examined Progress Note: 02/18/22 21:21 71-year-old is evaluated for generalized weakness. Patient has nonfocal neuro exam. She does have history of tremors and questionable concern about Parkinson but no diagnosis. She is given gentle hydration, feeling better on reevaluation. Chest x-ray is negative for any acute cardiopulmonary findings reviewed by me, official report is pending. Normal white count, fairly unremarkable chemistries and no UTI. Patient is advised to use cane/walker for ambulation to avoid a fall. Discussed signs symptoms of worsening needing return to ER which she seems understanding. Patient is advised to follow-up with his primary and neurologist for reevaluation. Counseled pt/family regarding: lab results, diagnosis, need for follow-up, rad results - Departure Departure Disposition: Home Clinical Impression: General weakness Condition: Stable Critical Care Time: No Referrals: KIKE HERNÁNDEZ DO [Primary Care Provider] - Follow up/PCP as directed (In 2 days for reevaluation) Instructions: Generalized Weakness (DC) Additional Instructions: Use walker/cane for ambulation all the time to avoid a fall. Take Tylenol as needed for pain. Follow-up with primary care and neurology for reevaluation. Return to ER for any focal weakness, numbness, difficulty breathing, chest pain etc.
[2022-02-18 19:50] LABS: Absolute Neutrophil Ct (ANC) 10.56 x10^3/uL (1.4-6.9); Basophil (Absolute #) 0.04 x10^3/uL (0-0.4); Eosinophil % 0.5 % (0.00-5.0); Eosinophil (Absolute #) 0.06 x10^3/uL (0-0.5); Hemoglobin 10.6 g/dL (12.0-16.0); Lymphocyte (Absolute #) 1.42 x10^3/uL (1.0-4.6); Lymphocytes % 11.2 % (24.0-44.0); Mean Cell Volume 88.9 fL (78-100); Mean Corpuscular Hemoglobin 29.4 pg (26-32); Mean Corpuscular Hgb Concent. 33.1 g/dL (32-36); Mean Platelet Volume 10.1 fL (7.5-11.0); Monocyte (Absolute #) 0.57 x10^3/uL (0.0-1.3); Monocytes % 4.5 % (0.0-12.0); Neutrophil % 83.2 % (36.0-66.0); Platelet Count 274 x10^3/uL (150-450); Red Cell Distribution Width 12.3 % (11.5-14.0); White Blood Count 12.7 x10^3/uL (4.0-10.5)
[2022-02-18 20:03] LABS: ALBUMIN 4.5 g/dL (3.5-5.0); ALKALINE PHOSPHATASE 72 U/L (38-126); ANION GAP 10.3 MEQ/L (5-15); BLOOD UREA NITROGEN 19 mg/dL (7-17); CHLORIDE 104 mmol/L (98-107); Calcium 9.7 mg/dL (8.4-10.2); Carbon Dioxide 25 mmol/L (22-30); Creatinine 1 0.52 mg/dL (0.52-1.04); EST GLOMERULAR FILTRATION RATE > 60.0 ML/MIN; Glucose 117 mg/dL (74-106); MAGNESIUM 2.1 mg/dL (1.6-2.3); Potassium 3.9 mmol/L (3.5-5.1); SGOT/AST 26 U/L (14-36); SGPT/ALT 18 U/L (0-35); SODIUM 136 mmol/L (137-145); Total Protein 7.6 g/dL (6.3-8.2)
[2022-02-18 20:14] LABS: Appearance CLEAR (CLEAR); Bilirubin NEGATIVE (NEGATIVE); Dipstick done @ ? MAIN LAB; Glucose NEGATIVE (NEGATIVE); Ketones NEGATIVE (NEGATIVE); Nitrite NEGATIVE (NEGATIVE); Protein,Urine Dip NEGATIVE (Negative); RBC NEGATIVE Ery/ul (0-5); Specific Gravity 1.015 (1.005-1.025); Urobilinogen 0.2 mg/dL (0-1)
[2022-02-18 20:17] LABS: Mucus SLIGHT /HPF (NEGATIVE); WBC 0-2 /HPF (0-5)
[2022-02-18 20:19] LABS: Urine Cultured Indicated? NO
[2022-02-18 21:35] VITALS: BP 126/62; PULSE 76; O2SAT 98
--- NOTE | 2022-02-18 21:48 | XRAY ---
Indication: General weakness. Comparison: September 06, 2021 Portable chest unchanged and remains clear with again COPD. Heart not enlarged. Bony thorax intact again without osteopenia, degenerative changes, old right rib fractures, and remote T12 fracture. No new/acute findings.
== END 2022-02-18 21:34 | disposition home or self-care (01) ==
LOC: ED 19:13
DX: R53.1 Weakness (principal); R53.83 Other fatigue; E78.5 Hyperlipidemia, unspecified; I10 Essential (primary) hypertension
CPT/HCPCS: 36000; 36415; 71045; 80053; 81015; 83605; 83735; 85025; 96360; 96374; 99284